=== PATIENT | female | born 1975 ===

== ENCOUNTER 2018-05-16 14:10 | Observation (INO) | payer OTHER ==
[2018-05-16 12:31] LABS: AMYLASE 52 IU/L (25-115)
[2018-05-16] MEDS ORDERED: ONDANSETRON 4 MG ODT BU PRN (14:20)
[2018-05-16] MEDS ORDERED: ONDANSETRON HCL 4 MG/2 ML SOL IV PRN ×2 (14:20→16:15)
[2018-05-16] MEDS ORDERED: HYDROMORPHONE HCL 2 MG/ML SOL IV PRN (14:21)
[2018-05-16] MEDS ORDERED: HYDROMORPHONE 1 MG/ML SYRINGE IV PRN ×2 (14:30→16:15)
[2018-05-16] MEDS: DEXTROSE/SALINE 0.45/KCL 20MEQ 1,000 ML/1,000 ML SOL IV SCH (14:32)
[2018-05-16] MEDS: SODIUM CHLORIDE 0.9% FLUSH 10 ML SOL IV PRN ×6 (14:32→16:32)
[2018-05-16] MEDS: SODIUM CHLORIDE 0.9% FLUSH 10 ML SOL IV SCH ×2 (14:36→23:48)
[2018-05-16 16:22] LABS: APPEARANCE,URINE Clear; BILIRUBIN,URINE NEGATIVE (NEGATIVE); COLOR,URINE Yellow; GLUCOSE, URINE (UA) NEGATIVE (NEGATIVE); KETONES,URINE NEGATIVE (NEGATIVE); LEUKOCYTE ESTERASE ,URINE NEGATIVE (NEGATIVE); NITRATE,URINE NEGATIVE (NEGATIVE); OCCULT BLOOD,URINE NEGATIVE (NEG-TRACE); UROBILINOGEN,URINE 0.2 (0.2-1.0 EU)
[2018-05-16 16:46] LABS: BACTERIA NEGATIVE (< 1+); CRYSTALS NEGATIVE (0-3 AVE/HPF); EPITHELIAL CELLS 0-2 (SQUAMOUS); RBC,URINE NEG (0-3AV/HPF); WBC,URINE 0-1 (0-5AV/HPF)
[2018-05-16] MEDS ORDERED: FLEET ENEMA PR PRN (17:23)
[2018-05-16] MEDS ORDERED: MAGNESIUM CITRATE SOL PO PRN (17:27)
[2018-05-16] MEDS ORDERED: MEPOLIZUMAB 100 MG SQ SCH (17:30)
[2018-05-16] MEDS ORDERED: DULAGLUTIDE 0.75 MG SC SCH (17:30)
[2018-05-16] MEDS ORDERED: PROMETHAZINE HYDROCHLORIDE 25 MG/ML SOL IM PRN (18:45)
[2018-05-16] MEDS ORDERED: MINERAL OIL ENEMA 1 EA NMA PR ONE (18:51)
[2018-05-16] MEDS ORDERED: MONTELUKAST SODIUM 5 MG PO SCH (21:00)
[2018-05-16] MEDS ORDERED: MONTELUKAST SODIUM 10 MG TAB PO SCH (21:00)
[2018-05-16] MEDS ORDERED: METFORMIN HCL 1000 MG PO SCH (21:00)
[2018-05-16] MEDS ORDERED: Non-Formulary Medication MISC (Fluticasone/Salmeterol 500/50 1 PUFF) INH SCH (21:00)
[2018-05-17] MEDS: DEXTROSE/SALINE 0.45/KCL 20MEQ 1,000 ML/1,000 ML SOL IV SCH ×2 (01:06→07:54)
[2018-05-17] MEDS ORDERED: ACETAMINOPHEN 325 MG PO PRN (02:58)
[2018-05-17] MEDS: SODIUM CHLORIDE 0.9% FLUSH 10 ML SOL IV SCH (06:21)
[2018-05-17] MEDS ORDERED: LEVOTHYROXINE SODIUM 50 MCG TAB PO SCH ×2 (07:00→09:00)
[2018-05-17] MEDS ORDERED: FLUOXETINE HYDROCHLORIDE 10 MG CAP PO SCH (09:00)
[2018-05-17] MEDS ORDERED: MONTELUKAST SODIUM 10 MG TAB PO SCH (09:00)
[2018-05-17] MEDS ORDERED: LISINOPRIL 5 MG TAB PO SCH (09:00)
[2018-05-17] MEDS ORDERED: Non-Formulary Medication MISC (Bupropion Xl 150 Mg 150 MG) PO SCH (09:00)
[2018-05-17] MEDS ORDERED: FLUTICASONE/SALMETEROL 500/50 60 PUFF DSK INH SCH (09:15)
[2018-05-17] MEDS ORDERED: BUPROPION XL 150 MG T24 PO SCH (09:15)
[2018-05-17 16:17] VITALS: BP 139/97; PULSE 81; RESP 18; TEMP 98.7; O2SAT 97
== END 2018-05-17 17:40 | disposition home or self-care (01) ==
LOC: ACUTE CARE 14:10 → INTOOBSV 14:10
PROVIDERS: ADMIT Family Medicine; ATTEND Family Medicine
DX: R10.9 Unspecified abdominal pain (principal); R11.0 Nausea; E86.0 Dehydration; N20.0 Calculus of kidney; K57.32 Diverticulitis of large intestine without perforation or abscess without bleeding; I10 Essential (primary) hypertension; E03.9 Hypothyroidism, unspecified
CPT/HCPCS: 74177; 81001; 82150; 94762; J1170; J2405; J2550; Q9967; A9270-GY

== ENCOUNTER 2018-08-25 01:27 | Inpatient (IN) | payer OTHER ==
[2018-08-25] MEDS ORDERED: SODIUM CHLORIDE 0.9% 1000ML 1,000 ML IV ONE (01:50)
[2018-08-25] MEDS ORDERED: HYDROMORPHONE HCL 2 MG/ML SOL IV ONE (01:54)
[2018-08-25] MEDS ORDERED: ONDANSETRON HCL 4 MG/2 ML SOL IV ONE ×2 (01:54→02:50)
[2018-08-25] MEDS ORDERED: ONDANSETRON HCL 4 MG/2 ML SOL ONE (01:58)
[2018-08-25] MEDS ORDERED: HYDROMORPHONE 1 MG/ML SYRINGE ONE (01:58)
[2018-08-25 01:59] LABS: BASOPHILS % (AUTO) 1 % (0-3); EOSINOPHILS % (AUTO) 1 % (0-9); HEMATOCRIT 40 % (35-47); LYMPHOCYTES % (AUTO) 37.9 % (10-50); MEAN CORPUSCULAR HEMOGLOBIN 27.1 pg (27.0-32.0); MEAN CORPUSCULAR HGB CONC 32.8 gm/dl (32.0-36.0); MEAN CORPUSCULAR VOLUME 83 fL (81-99); MONOCYTES % (AUTO) 9.7 % (0-12); NEUTROPHILS % (AUTO) 50.2 % (37-80)
[2018-08-25] MEDS ORDERED: TAMSULOSIN HYDROCHLORIDE 0.4 MG CAP PO SCH (02:03)
[2018-08-25 02:15] LABS: ALBUMIN 3.4 gm/dl (3.4-5.0); BILIRUBIN,TOTAL 0.3 mg/dl (0.2-1.0); CALCIUM 8.6 mg/dl (8.5-10.1); CARBON DIOXIDE 27.3 mEq/L (21-32); CREATININE 1.21 mg/dl (0.60-1.00); POTASSIUM 3.5 mMol/L (3.5-5.1); TOTAL PROTEIN 7.2 gm/dl (6.4-8.2)
[2018-08-25] MEDS ORDERED: TAMSULOSIN HYDROCHLORIDE 0.4 MG CAP ONE (02:15)
[2018-08-25] MEDS ORDERED: ALBUTEROL NEB SOL 2.5MG/3ML 1 VIAL SOL NEB PRN (02:43)
[2018-08-25] MEDS ORDERED: MEPOLIZUMAB 100 MG SQ SCH (02:45)
[2018-08-25] MEDS ORDERED: ONDANSETRON 4 MG ODT BU PRN (02:48)
[2018-08-25] MEDS ORDERED: HYDROMORPHONE HCL 2 MG/ML SOL IV PRN (02:48)
[2018-08-25] MEDS: SODIUM CHLORIDE/KCL 20MEQ 1,000 ML IV SCH ×2 (03:45→11:11)
[2018-08-25] MEDS ORDERED: LEVOTHYROXINE SODIUM 50 MCG TAB PO SCH (07:00)
[2018-08-25 07:56] LABS: APPEARANCE,URINE Clear; BILIRUBIN,URINE NEGATIVE (NEGATIVE); COLOR,URINE Yellow; GLUCOSE, URINE (UA) NEGATIVE (NEGATIVE); KETONES,URINE NEGATIVE (NEGATIVE); LEUKOCYTE ESTERASE ,URINE NEGATIVE (NEGATIVE); NITRATE,URINE NEGATIVE (NEGATIVE); OCCULT BLOOD,URINE 2+ (NEG-TRACE); UROBILINOGEN,URINE 0.2 (0.2-1.0 EU)
[2018-08-25] MEDS ORDERED: APAP/HYDROCODONE 1 EACH TABLET PO PRN (08:00)
[2018-08-25 08:03] LABS: BACTERIA TRACE (< 1+); CRYSTALS NEGATIVE (0-3 AVE/HPF); EPITHELIAL CELLS NEGATIVE (SQUAMOUS); WBC,URINE 0-1 (0-5AV/HPF)
[2018-08-25] MEDS ORDERED: LISINOPRIL 5 MG TAB PO SCH (09:00)
[2018-08-25] MEDS ORDERED: METFORMIN HYDROCHLORIDE 500 MG TAB PO SCH (09:00)
[2018-08-25] MEDS ORDERED: FLUOXETINE HYDROCHLORIDE 10 MG CAP PO SCH (09:00)
[2018-08-25] MEDS ORDERED: BUPROPION XL 150 MG T24 PO SCH (09:00)
[2018-08-25] MEDS ORDERED: FLUTICASONE/SALMETEROL 500/50 60 PUFF DSK INH SCH (09:00)
[2018-08-25] MEDS ORDERED: HYDROMORPHONE 1 MG/ML SYRINGE IV PRN (09:00)
[2018-08-25 16:27] VITALS: BP 110/71; PULSE 80; RESP 16; TEMP 97.8; O2SAT 97
[2018-08-25] MEDS ORDERED: MONTELUKAST SODIUM 10 MG TAB PO SCH (21:00)
[2018-08-29] MEDS ORDERED: DULAGLUTIDE 0.75 MG SC SCH (02:42)
== END 2018-08-25 16:20 | disposition home or self-care (01) | DRG 465 ==
LOC: ED 01:27 → UNDOADMIN 02:26 → ACUTE CARE 02:26 → UNDODISIN 16:20
PROVIDERS: ADMIT Family Medicine; ATTEND Family Medicine
DX: N20.0 Calculus of kidney (principal); R10.9 Unspecified abdominal pain
CPT/HCPCS: 80053; 81001; 82962; 85025; 96365; 96374; 96375; 99222; 99284; J2405; J7613; A9270-GY; J1170

== ENCOUNTER 2019-02-13 10:52 | Outpatient (CLI) | payer OTHER, BC ==
[2018-08-25 16:27] VITALS: O2SAT 97
== END 2019-02-13 10:53 | disposition home or self-care (01) | DRG 561 ==
LOC: CONVCARE 10:52
PROVIDERS: ATTEND Orthopaedic Surgery
DX: S92.902D Unspecified fracture of left foot, subsequent encounter for fracture with routine healing (principal)
CPT/HCPCS: 73630

== ENCOUNTER 2019-02-20 08:53 | Outpatient (CLI) | payer OTHER, BC ==
[2018-08-25 16:27] VITALS: O2SAT 97
== END 2019-02-20 08:54 | disposition home or self-care (01) | DRG 950 ==
LOC: RAD 08:53
PROVIDERS: ATTEND Orthopaedic Surgery
DX: S90.32XD Contusion of left foot, subsequent encounter (principal); M25.48 Effusion, other site
CPT/HCPCS: 73718